=== PATIENT | female | born 1990 | race Caucasian/White ===

== ENCOUNTER 2017-11-26 11:14 | Emergency (ER) | payer OTHER ==
[~2017-11-26] VITALS: Ht 160 cm; Wt 104.3 kg
[2017-11-26 11:19] VITALS: Ht 160 cm; Wt 104.3 kg
[2017-11-26 11:30] VITALS: BP 120/53
== END 2017-11-26 11:30 | disposition home or self-care (01) ==
LOC: ED 11:14
DX: H10.89 Other conjunctivitis (principal)

== ENCOUNTER 2019-02-24 10:06 | Emergency (ER) | payer OTHER ==
[~2019-02-24] VITALS: Ht 160 cm; Wt 108.4 kg
[2019-02-24 11:34] VITALS: BP 127/66
== END 2019-02-24 11:34 | disposition home or self-care (01) ==
LOC: ED 10:06
DX: J02.0 Streptococcal pharyngitis (principal)
CPT/HCPCS: J1100; J7030; Q0162

== ENCOUNTER 2019-06-18 13:07 | Emergency (ER) | payer OTHER ==
[~2019-06-18] VITALS: Ht 157.5 cm; Wt 108.0 kg
[2019-06-18 13:26] VITALS: Ht 157.5 cm; Wt 108.0 kg
[2019-06-18 14:54] VITALS: BP 131/65
== END 2019-06-18 14:54 | disposition home or self-care (01) ==
LOC: ED 13:07
DX: J03.90 Acute tonsillitis, unspecified (principal)